=== PATIENT | male | born 1970 | race Hispanic/Latino ===

== ENCOUNTER 2025-03-02 14:21 | Emergency (ER) | payer OTHER ==
[~2025-03-02] VITALS: Ht 177.8 cm; Wt 88.0 kg
--- NOTE | 2025-03-02 14:45 | NUR ---
ASSUMED CARE AT THIS TIME
--- NOTE | 2025-03-02 14:48 | ERN ---
General Chief Complaint: Neck Pain Stated Complaint: NECK PAIN, NAUSEA Time Seen by MD: 14:23 Source: patient History of Present Illness Initial Comments This is a 55-year-old male coming in complaining of left-sided neck pain. Patient states that the neck pain started yesterday while he was fishing. He took some medication for the pain felt better. She states that today the pain worsened patient was concerned Allergies: Coded Allergies: acetaminophen (Unverified Allergy, Unknown, 03/02/25) hydrocodone (Unverified Allergy, Unknown, 03/02/25) meperidine (Unverified Allergy, Unknown, 03/02/25) Past Medical History Past Medical History: High Cholesterol Past Surgical History: Appendectomy Results Laboratory and Microbiology Labs Reviewed?: Yes EKG/XRAY/US/CT/MRI EKG Comment 03/03/2025 time 2:25 p.m. Ventricular rate 60 Sinus rhythm [place] [address] wave elevation or depression MDM MDM: Differential diagnosis: Torticollis, muscle spasms, Rationale: Tests considered and ordered secondary to shared decision making include: Previous outside records reviewed: Old ER visits. Risk of complication and/or morbidity or mortality of patient management: None Medications-Per medication reconciliation Need for hospitalization: Patient does not meet criteria for hospitalization. Need for emergency major/minor surgery: No Patient is a 55-year-old male coming in complaining of neck pain. Patient states he was fishing yesterday felt the pain in his left side of the trapezius muscle took some Tylenol in his help with the pain. But states that today he felt worse so he decided to come in for further evaluation. On physical exam there is trapezius muscle tenderness bilaterally more in the left trapezius muscle. Patient received antispasmodics anti inflammatory states his pain completely subsided. Patient will be discharged in stable condition with a diagnosis of torticollis. ED Course Orders Procedure Category Date Status Time Orphenadrine Citrate PHA 03/02/25 Complete (Norflex) 15:00 Ketorolac PHA 03/02/25 Complete Tromethamine 30mg/Ml 15:00 Current Medications Medications (Trade) Dose Ordered Sig/Michi Route PRN Reason Start Time Stop Time Status Last Admin Dose Admin Ketorolac Tromethamine (toRADol) 30 mg ONCE ONCE IM 03/02/25 15:00 03/02/25 15:01 DC 03/02/25 14:52 Orphenadrine Citrate (Norflex) 60 mg ONCE ONCE IM 03/02/25 15:00 03/02/25 15:01 DC 03/02/25 14:52 Vital Signs Date Time Temp Pulse Resp B/P (MAP) Pulse Ox O2 Delivery O2 Flow Rate FiO2 03/02/25 14:23 97.5 64 14 146/95 98 Room Air 0 DX & DISP Disposition: Discharge Departure Impression: Primary Impression: Torticollis, acute Additional Impression: Muscle spasms of neck Condition: Stable Scripts Naproxen (Naproxen) 500 Mg Tablet 1 TAB PO BID for pain for 7 Days, #14 TAB 0 Refills Prov: MITZY DURAN MD 03/02/25 Methocarbamol (Robaxin) 750 Mg Tab 1 TAB PO BID for 7 Days, #14 TAB 0 Refills Prov: MITZY DURAN MD 03/02/25 Additional Instructions: You have been reviewed in the emergency department at [facility] after presenting with chest pain. After considering your history, your risk factors, your EKG and your blood test troponins, have been found to be at very low risk less than (1 in 100) of having a major adverse cardiac event (like heart attack) in the near future. In the " low risk" group, the risks of doing further tests and treatment as the inpatient outweighs the benefits. In many patients in the low risk group for the test of any sort or unnecessary, however he should discuss this further with his general practitioner who will understand the medical and personal backgrounds better. Because we have never declared you" no risk" we would suggest. 1 returning for medical review if you have further episodes of chest pain/arm pain or other concerning symptoms like dizziness, collapse, palpitations or shortness of breath. 2. Following up with your local doctor who will consider the need for further testing and will also ensure that any modifiable risk factors you may have for heart disease are optimally managed. Patient will be discharged in stable condition at the moment discharge patient states , no chest pain Referrals: SELF,REFERRAL (PCP) MAGALYS CRISTOBAL MD Time of Disposition: 15:22 MITZY DURAN MD Mar 02, 2025 14:48
[2025-03-02] MEDS: ORPHENADRINE 60MG/2ML IM ONE (14:52)
[2025-03-02] MEDS ORDERED: NAPR-1194 PO (15:23)
[2025-03-02] MEDS ORDERED: METH-662 PO (15:23)
[2025-03-02 15:31] VITALS: BP 146/92; PULSE 59; RESP 16; TEMP 97.7; O2SAT 99
--- NOTE | 2025-03-03 05:49 | EKG ---
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
== END 2025-03-02 17:30 | disposition home or self-care (01) ==
LOC: EDH 14:21
DX: M43.6 Torticollis (principal); M62.838 Other muscle spasm; E78.00 Pure hypercholesterolemia, unspecified; Z88.5 Allergy status to narcotic agent; Z90.49 Acquired absence of other specified parts of digestive tract
CPT/HCPCS: 99284; 96372 ×2; 93005; J1885; J2360